=== PATIENT | female | born 1980 | race Caucasian/White ===

== ENCOUNTER 2020-05-08 17:49 | Inpatient (IN) | payer OTHER, SELFPAY ==
[~2020-05-08] VITALS: Ht 160 cm; Wt 103.9 kg
--- NOTE | 2020-05-08 18:08 | NUR ---
PT BIB SELF C/O WORSENING SOB SINCE 04/27/20. PT ALSO REPORTS DIARRHEA X1 WEEK. DENIES ANY NAUSEA. PT REPORTS SHE WAS DIAGNOSED COVID POSITIVE ON 04/29/20. PT IS AAOX4, REPS SHALLOW AND EVEN, LUNG CTA, SKIN INTACT PINK WARM AND DRY. PT GOWNED AND PLACED ON MONITOR, SPO2 @98% ON ROOM AIR. AWAITING MSE BY .
[2020-05-08 19:16] LABS: microscopic required? NO
--- NOTE | 2020-05-08 19:17 | NUR ---
REPORT GIVEN TO GERMÁN CARPIO RN, WHO WILL ASSUME FURTHER CARE OF THIS PATIENT.
[2020-05-08 19:27] LABS: urine erythrocyte NEGATIVE (NEGATIVE)
[2020-05-08 19:28] LABS: BASOPHIL % 0.4 % (0-2)
[2020-05-08 19:29] LABS: PLATELET COUNT 439 x10^3mcL (130-400); RED CELL DISTRIBUTION WIDTH 18.1 % (11.5-14.5)
[2020-05-08 19:37] LABS: CARBON DIOXIDE 22.2 mmol/L (21-32); CHLORIDE SERUM 98 mmol/L (98-107); CREATININE SERUM 0.7 mg/dL (0.6-1.0); GFR1 > 60 mL/min; GLUCOSE SERUM 125 mg/dL (74-106); POTASSIUM SERUM 3.2 mmol/L (3.5-5.1); SODIUM SERUM 134 mmol/L (136-145)
[2020-05-08 19:44] LABS: ALKALINE PHOSPHATASE 58 U/L (46-116); ALT/SGPT 26 U/L (14-59); AST/SGOT 31 U/L (15-37); BILIRUBIN TOTAL 0.4 mg/dL (0.20-1.00); C REACTIVE PROTEIN 7.6 mg/dL (<=0.9); LACTIC DEHYDROGENASE (LDH) 221 U/L (100-190); TOTAL PROTEIN, SERUM 7.7 g/dL (6.4-8.2)
[2020-05-08] MEDS ORDERED: JANUVIA50 M1 (20:25)
[2020-05-08] MEDS ORDERED: JARDIANCE10 MG PO (20:25)
[2020-05-08] MEDS ORDERED: METFORMIN HYDR500 M1 PO (20:26)
[2020-05-08] MEDS ORDERED: TOPROL XL50 MG PO (20:26)
[2020-05-08] MEDS ORDERED: LIPITOR10 MG GT (20:26)
[2020-05-08] MEDS ORDERED: TAPAZOLE5 MG PO (20:26)
--- NOTE | 2020-05-08 20:27 | NUR ---
ASSISTED PT ONTO BEDSIDE COMMODE; SOFT NON BLOODY STOOL NOTED; NO DISTRESS. RESP RATE 22-24, AAO4.
--- NOTE | 2020-05-08 21:27 | NUR ---
PT REMAINS CONNECTED TO FULL CM; CALL LIGHT IN REACH, NO DISTRESS.
--- NOTE | 2020-05-08 22:56 | NUR ---
PT AAO4, RESP E/U, NO DISTRESS. DIMMED LIGHT FOR COMFORT; CALL LIGHT IN REACH
--- NOTE | 2020-05-09 00:32 | NUR ---
PT REMAINS CONNECTED TO FULL CM. NO DISTRESS.
--- NOTE | 2020-05-09 00:58 | NUR ---
RESPONDED TO CALL LIGHT. PER PT FELT COLD AND NUMBING SENSATION TO RT UPPER THIGH. ENCOURAGED PT TO GET UP AND STRETCH LEG AND MOVE AROUND. PT STS SENSATION RETURNING TO LEG. CALL LIGHT IN REACH.
--- NOTE | 2020-05-09 01:33 | NUR ---
recieved report from jeffrey Encinas to assume care of pt.
--- NOTE | 2020-05-09 02:07 | NUR ---
PT LAYING IN POSITION OF COMFORT ON LEFT LATERAL SIDE. PT INSTRUCTED TO LAY IN PRONE POSITION IF TOLERABLE. PT A&OX4,NO ACUTE DISTRESS NOTED, RESP EVEN AND UNLABORED, O2 SATURATION FLUXUATING BETWEEN 93-96%. PLACED PT 1L O2 VIA NC. PT GAVE UNDERSTANDING TO INSTURCTIONS TO LAY IN PRONE POSITION.
--- NOTE | 2020-05-09 03:45 | NUR ---
PT WAKES EASILY TO NAME AND VERBAL STIMULI. PT LEADS MOVED TO OBTAIN BETTER READING ON MORNING NEWS ANCHOR. PT REMAINS ON MONITOR AND ON
[2020-05-09 06:32] VITALS: BP 110/45
--- NOTE | 2020-05-09 07:10 | NUR ---
REPORT GIVEN TO STEVEN DIAMOND.
--- NOTE | 2020-05-09 07:17 | NUR ---
RECEIVE REPORT STEVEN BELTRAN
--- NOTE | 2020-05-09 07:45 | NUR ---
CALLED PHARMACY TO DELIVER IN PATIENT MEDICATION PER PHARMACY WILL DELIVER AND PLACED IN BLUE BIN,
--- NOTE | 2020-05-09 08:50 | NUR ---
LAB AT BEDSIDE WITH MORNING DRAW
--- NOTE | 2020-05-09 09:10 | NUR ---
MEDICATED PT PER ADMITTING ORDERS, PT TOLERATED WELL, SEE EMAR
[2020-05-09 09:18] LABS: BASOPHIL % 0.4 % (0-2); PLATELET COUNT 393 x10^3mcL (130-400); RED CELL DISTRIBUTION WIDTH 18.6 % (11.5-14.5)
--- NOTE | 2020-05-09 09:34 | NUR ---
PT SITTING UP IN BED, AAOX4, FOOD TRAY SET ON SIDE TABLE, PT EATING, NO ACUTE RESPIRATORY DISTRESS NOTED, STATES 5/10 DISCOMFORT ON EPIGASTRIC AREA, PT STATES SITTING UP IN HIGH FOWLERS POSITION HELPED WITH THE DISCOMFORT, RR 22, PT ON 1 L/MIN OXYGEN VIA NC, CURRENT 02 SAT 97%, SAFETY PRECAUTIONS IN PLACE, CALL LIGHT WITHIN REACH. UPATED PT REGARDING POC
[2020-05-09 09:46] LABS: CALCIUM 7.8 mg/dL (8.5-10.1); CARBON DIOXIDE 25.6 mmol/L (21-32); CHLORIDE SERUM 104 mmol/L (98-107); CREATININE SERUM 0.5 mg/dL (0.6-1.0); GFR1 > 60 mL/min; GLUCOSE SERUM 127 mg/dL (74-106); POTASSIUM SERUM 3.5 mmol/L (3.5-5.1); SODIUM SERUM 138 mmol/L (136-145)
--- NOTE | 2020-05-09 11:06 | NUR ---
REPORT GIVEN TO MICHAEL HARRIS TELE NURSE
--- NOTE | 2020-05-09 11:45 | NUR ---
RECEIVED PT FROM ER. PT ADMITTED FOR WORSENING OF COVID SYMPTOMS AND PNA. PT IS A/OX4. YI SPEAKING. NO SOB OR FACIAL DISTRESS NOTED. NO C/O PAIN AT THIS TIME. PT IS ON 2L NC. ABD SOFT AND ROUND. LBM 05/09/20. DENIES N/V/D. SKIN INTACT. IV 20G ON RAC. INTACT. PATENT. NO SIGNS OF INFILTRATION. ADMISSION CARE RENDERED. PT IS ORIENTED TO ROOM. BED AT THE LOWEST POSITION. CALL LIGHT WITHIN REACH. WILL CONTINUE TO MONITOR.
--- NOTE | 2020-05-09 12:05 | NUR ---
IN AND EVAL PT. MADE HER AWARE THAT WAS TESTED FOR COVID BACK IN APRIL 29 AND PT STATES POSITIVE FOR COVID. NEW ORDER RECEIVED FROM REMDESEVIR 200MG X1 THEN REMDESEVIR 100MG DAILY. CONVALESCENT PLASMA 1 UNIT ALSO ORDERED BY . MICHAEL HARRIS ASSIGNED TO THIS PT MADE AWARE OF ABOVE.
[2020-05-09 13:04] VITALS: BP 113/57
--- NOTE | 2020-05-09 16:00 | NUR ---
PT COMPLAINED ABOUT HAVING DIARRHEA. INFORMED PT THAT IT IS ONE OF THE SIDE EFFECT OF GETTING ANTIBIOTIC. PT VERBALIZED UNDERSTANDING AND STILL WOULD LIKE TO BE MEDICATED FOR IT. SPOKE TO DR CHOE. DR CHOE GAVE NEW ORDER FOR LOMATIL Q4H. NOTED AND CARRIED OUT.
[2020-05-09 17:27] VITALS: BP 103/52
--- NOTE | 2020-05-09 19:05 | NUR ---
PT RESTING COMFORTABLY AT THIS TIME. CURRENTLY GETTING CONV. PLASMA. WILL ENDORSE TO PM NURSE FOR CONTINUTIY OF CARE.
--- NOTE | 2020-05-09 19:30 | NUR ---
RECEIVED REPORT FROM MICHAEL HARRIS. PT AAOX4 AND DENIES THORNE/DIZZINESS. PT ON TELE #12, NSR WITH HR 72. PT DENIES CP/PRESSURE. PT PULSES PALPABLE AND CAP REFILL <3 SEC. PT ON HEPARIN SQ. PT LUNG SOUNDS CTA ON 2L NC. PT DENIES SOB OR RESP DISTRESS. PT ABD SOFT/ROUND WITH ACTIVE BS X4. PT DENIES N/V/C. PT C/O DIARRHEA. PT VOIDS FREELY VIA BRP. PT HAS GENERALIZED WEAKNESS, BUT IS AMBULATORY. PT SKIN INTACT. PT DENIES S/S OF PAIN OR DISCOMFORT AT THIS TIME. PT IV TO RAC PATENT AND INTACT. CONVALESCENT PLASMA INFUSING AT THIS TIME. CALL LIGHT WITHIN REACH. BED IN LOWEST POSITION. SIDE RAILS X2 UP. WILL CONTINUE TO MONITOR.
[2020-05-09 20:00] VITALS: BP 123/42
--- NOTE | 2020-05-09 20:00 | NUR ---
CONVALESCENT PLASMA INFUSION COMPLETE AT THIS TIME. VSS. TEMP 97.6, HR 63, BP 123/42 (69), RR 18, SA02 98%. PROVIDED PT WITH WATER AT THIS TIME. ALL NEEDS MET. CALL LIGHT WITHIN REACH. BED IN LOWEST POSITION. SIDE RAILS X2 UP. WILL CONTINUE TO MONITOR.
--- NOTE | 2020-05-10 02:20 | NUR ---
PT RESTING COMFORTABLY IN BED, EASILY AROUSABLE. PT BREATHING E/U ON 2L NC. NO ACUTE DISTRESS NOTED. ALL NEEDS MET. WILL CONTINUE TO MONITOR.
[2020-05-10 06:38] VITALS: BP 157/64
--- NOTE | 2020-05-10 07:07 | NUR ---
PT RESTED COMFORTABLY WITH EYES CLOSED IN INTERVALS, EASILY AROUSABLE. NO ACUTE DISTRESS NOTED. PT DENIES SOB OR RESP DISTRESS. ALL NEEDS MET. ALL QUESTIONS AND CONCERNS ANSWERED. COMFORT AND SAFETY MEASURES MAINTAINED. CALL LIGHT WITHIN REACH. BED IN LOWEST POSITION. SIDE RAILS X2 UP. DROPLET+CONTACT PRECAUTIONS MAINTAINED. ENDORSED CARE TO MICHAEL HARRIS.
--- NOTE | 2020-05-10 07:08 | NUR ---
SWABBED PT FOR MRSA AND COVID-19 TESTS AT THIS TIME. PT TOLERATED WELL.
--- NOTE | 2020-05-10 07:30 | NUR ---
RECEIVED PT FROM PM NURSE. PT AWAKE AND RESTING COMFORTABLY IN BED. NO FACIAL DISTRESS OR SOB NOTED. PT IS A/O X4. LUNG SOUNDS CTA. BREATHING E/U ON 2L NC. TELE #14. NSR. DENIES CP/PRESSURE. PULSES EVEN AND PALPABLE. NO EDEMA NOTED. ACTIVE BS X4. ABD SOFT AND NONDISTENDED. LBM 05/09/20. STILL REPORTING DIARRHEA. WILL MEDICATE PER EMAR. BRP. VOIDS FREELY. GENERALIZED WEAKNESS NOTED BUT IS AMBULATORY. SKIN INTACT. NO C/O PAIN AT THIS TIME. IV 20G ON RAC. INTACT, PATENT. TKO. BED AT THE LOWEST POSITION. CALL LIGHT WITHIN REACH. WILL CONTINUE TO MONITOR.
[2020-05-10 08:06] LABS: CALCIUM 8.7 mg/dL (8.5-10.1); CARBON DIOXIDE 29.6 mmol/L (21-32); CHLORIDE SERUM 104 mmol/L (98-107); CREATININE SERUM 0.5 mg/dL (0.6-1.0); GFR1 > 60 mL/min; GLUCOSE SERUM 123 mg/dL (74-106); SODIUM SERUM 141 mmol/L (136-145)
[2020-05-10 09:00] LABS: BASOPHIL % 0.5 % (0-2)
[2020-05-10 10:18] LABS: PLATELET COUNT 442 x10^3mcL (130-400); RED CELL DISTRIBUTION WIDTH 17.9 % (11.5-14.5)
[2020-05-10 13:00] VITALS: BP 129/81
--- NOTE | 2020-05-10 17:30 | NUR ---
PT NOTED TO HAVE A DRY, NONPRODUCTIVE COUGH. SPOKE TO DR CHOE OVER THE PHONE. DR CHOE ORDERED ALLYSON DM Q6H. NOTED AND CARRIED OUT.
[2020-05-10 17:34] VITALS: BP 101/54
--- NOTE | 2020-05-10 19:30 | NUR ---
RECEIVED REPORT FROM MICHAEL HARRIS. PT IS AAOX4 AND DENIES THORNE/DIZZINESS. PT ON TELE #14, NSR WITH HR 62. PT DENIES CP/PRESSURE. PT PULSES PALPABLE AND CAP REFILL <3 SEC. PT LUNG SOUNDS DIMINISHED TO BLL. PT DENIES SOB OR RESP DISTRESS. PT ABD SOFT/ROUND WITH ACTIVE BS X4. PT DENIES N/V/C. PT C/O DIARRHEA. PT VOIDS FREELY WITH BRP. PT HAS GENERALIZED WEAKNESS AND IS AMBULATORY. PT SKIN INTACT. PT RAC IV PATENT/INTACT. ALL NEEDS MET. CALL LIGHT WITHIN REACH. BED IN LOWEST POSITION. SIDE RAILS X2 UP. WILL CONTINUE TO MONITOR.
[2020-05-10 20:41] VITALS: BP 119/65
--- NOTE | 2020-05-11 02:30 | NUR ---
DATABASE TESTER REPORTED THAT PT RHYTHM WENT FROM NSR TO JUNCTIONAL WITH FREQUENT PVCS. DR. PARIKH AWARE. NO NEW ORDERS GIVEN AT THIS TIME.
--- NOTE | 2020-05-11 02:56 | NUR ---
PT RESTING COMFORTABLY WITH EYES CLOSED, EASILY AROUSABLE. NO ACUTE DISTRESS NOTED. PT BREATHING E/U. PT DENIES SOB OR RESP DISTRESS. ALL NEEDS MET. WILL CONTINUE TO MONITOR.
--- NOTE | 2020-05-11 06:07 | NUR ---
PT WAS SWABBED FOR COVID TEST AGAIN D/T PREVIOUS TEST NOT BEING RECEIVED FROM THE DAY BEFORE. PT TOLERATED WELL.
[2020-05-11 06:13] VITALS: BP 120/75
--- NOTE | 2020-05-11 07:30 | NUR ---
RECEIVED REPORT FROM CHARLEEN HARRIS PM, PT IN BED, SLEEPING, IN NO ACUTE APPARENT DISTRESS, PERRLA, NO FACIAL DROOP, NO SOB/COUGH/WHEEZING, 2L/MIN, NC, 92-94%, LUNGS CTAB, TELE # 14, SR, BS ACTIVE X 4, NONTENDER TO TOUCH, SEE SHIFT ASSESSMENT, IV PATENT, DRESSING CDI, CONTINENT, BRP, AMBULATORY, NO SKIN ISSSUE NOTED, ALL NEEDS ADDRESSED, SAFETY PROTOCOL FOLLOWED, CONTINUE TO MONITOR
--- NOTE | 2020-05-11 07:35 | NUR ---
PT RESTED COMFORTABLY WITH EYES CLOSED, EASILY AROUSABLE. NO ACUTE DISTRESS NOTED. PT COMPLIED WITH NURSING CARE DURING THE SHIFT. COMFORT AND SAFETY MEASURES MAINTAINED. ALL NEEDS MET. ENDORSED CARE TO THI RN. ALL QUESTIONS AND CONCERNS ADDRESSED.
--- NOTE | 2020-05-11 07:39 | NUR ---
PT SEEN BY DR CHOE AT BEDSIDE, NEW ORDER NOTED, PT AWARE, CHARGE NURSE AWARE, CONTINUE TO MONITOR
[2020-05-11 09:08] VITALS: BP 128/69
--- NOTE | 2020-05-11 09:30 | NUR ---
AM MED GIVEN PER MD ORDER, TOLERATED WELL, NO ASE NOTED AT THIS TIME, EDUCATED PT R/T MED, ASE AND MONITOR, VERBALLY UNDERSTANDING, TOLERATED BREAKFAST WELL, IV PATENT, DRESSING CDI, ALL NEEDS ADDRESSED, SAFETY PROTOCOL FOLLOWED, CONTINUE TO MONITOR
--- NOTE | 2020-05-11 09:55 | NUR ---
PT REPOTED PAIN, /10, ABD, LOCAL, DULL AND COUGH, PRN MED GIVEN PER ORDER VAI EMAR, TOLERATED WELL, ADUCATION R/T MED GIVEN, VERBALLY UNDERSTANDING, ALL NEEDS ADDRESSED, SAFETY PROTOCOL REENFORCED, CONTINUE TO MONITOR
[2020-05-11 10:20] LABS: ALKALINE PHOSPHATASE 51 U/L (46-116); ALT/SGPT 35 U/L (14-59); AST/SGOT 32 U/L (15-37); BILIRUBIN TOTAL 0.3 mg/dL (0.20-1.00); CALCIUM 8.3 mg/dL (8.5-10.1); CHLORIDE SERUM 105 mmol/L (98-107); CREATININE SERUM 0.5 mg/dL (0.6-1.0); GFR1 > 60 mL/min; GLUCOSE SERUM 120 mg/dL (74-106); POTASSIUM SERUM 3.8 mmol/L (3.5-5.1); SODIUM SERUM 141 mmol/L (136-145)
[2020-05-11 10:28] LABS: ALBUMIN 2.9 g/dL (3.4-5.0)
--- NOTE | 2020-05-11 11:40 | NUR ---
PT IN BED, IN NO ACUTE RESP DISTRESS, BS CHECKED, NO INSULIN COVERAGE NEEDED AT THIS TIME PER SLEDING SCALE, PT DENIED PAIN/DISCOMFORT, DENIED THORNE/N/V/D, DENIED CP/PALPITATION, IV PATENT, DRESSING CDI, AMBULATORY, CONTINENT, IV PATENT, DRESSING CDI, SKIN C.D.W, ALL NEEDS ADDRESSED, SAFETY PROTOCOL FOLLOWED, CONTINUE TO MONITOR
[2020-05-11 12:31] VITALS: BP 109/57
--- NOTE | 2020-05-11 14:45 | NUR ---
PT IN BED, IN NO ACUTE RESP DISTRESS, RESP E/U, 2L/MIN, 96%, NO SOB/COUGH/WHEEZING, AFIBRIL, IV PATENT, DRESSING CDI, KVO, PT REPORTED DIARRHEA X 3 TIME, PRN MED GIVEN PER MD ORDER, TOLERATED WELL, VERBALLY UNDERSTANDING EDUCATION R/T MED, TOLERATED LUNCH WELL, ALL NEEDS ADDRESSED, DENIED PAIN/DISCOMFORT, DENIED THORNE/N/V, SAFETY PROTOCOL FOLLOWED, CONTINUE TO MONITOR
--- NOTE | 2020-05-11 16:22 | NUR ---
PT IN BED, SLEEPING, IN NO ACUTE RESP DISTRESS, RESP E/U, 2L/MIN, NC, 96%, NO SOB/COUGH/WHEEZING, NO FURTHER DIARRHEAR REPORTED AT THIS TIME, BS CHECKED, NO INSULIN COVERAGE NEEDED AT THIS TIME PER SLIDING SCALE, ALL NEEDS ADDRESSED, SAFETY PROTOCOL FOLLOWED, CONTINUE TO MONITOR
[2020-05-11 16:57] VITALS: Ht 160 cm; Wt 103.9 kg
[2020-05-11 17:29] VITALS: BP 99/53
--- NOTE | 2020-05-11 18:11 | NUR ---
PT IN BED, IN NO ACUTE DISTRESS, RESP E/U, NO SOB/COUGH/WHEEZING NOTED, 2L/MIN, NC, O2 SAT 96%, TELE, SR, HR-60 AT THIS TIME, DENIED PAIN/DISCOMFORT, DENIED CP/PALPITATION, DENIED THORNE/N/V/D, IV PATENT, KVO, DRESSING CDI, SKIN C/D/W, AMBULATORY, CONTINENT, BRP, TOLERATED DINNER WELL, ALL NEEDS ADDRESSED, SAFETY PROTOCOL FOLLOWED, WILL ENDORSE TO ONCOMING RN
[2020-05-11 21:11] VITALS: BP 123/63
[2020-05-12 06:42] VITALS: BP 118/58
[2020-05-12 07:22] LABS: BASOPHIL % 0.4 % (0-2)
--- NOTE | 2020-05-12 07:25 | NUR ---
RECEIVED PT. IN BED A/A/O X3. NO SOB, NO N/V NOTED. PT. DENIES ANY PAIN AT THIS TIME. PT. IS ON O2 AT 2L VIA NC. IV SITE NOTED TO R AC. PT. IS ON DROPLET ISOLATION FOR (+) COVID-19. BED IN LOW POS., CALL LIGHT WITHIN REACH. SIDE RAILS UP X3.
[2020-05-12 08:19] LABS: ALKALINE PHOSPHATASE 48 U/L (46-116); ALT/SGPT 38 U/L (14-59); AST/SGOT 36 U/L (15-37); BILIRUBIN TOTAL 0.3 mg/dL (0.20-1.00); CALCIUM 8.1 mg/dL (8.5-10.1); CARBON DIOXIDE 28.1 mmol/L (21-32); CHLORIDE SERUM 106 mmol/L (98-107); CREATININE SERUM 0.6 mg/dL (0.6-1.0); GFR1 > 60 mL/min; GLUCOSE SERUM 104 mg/dL (74-106); POTASSIUM SERUM 3.5 mmol/L (3.5-5.1); SODIUM SERUM 143 mmol/L (136-145); TOTAL PROTEIN, SERUM 6.8 g/dL (6.4-8.2)
[2020-05-12 08:20] LABS: ALBUMIN 2.8 g/dL (3.4-5.0)
[2020-05-12 08:42] LABS: PLATELET COUNT 459 x10^3mcL (130-400); RED CELL DISTRIBUTION WIDTH 17.6 % (11.5-14.5)
[2020-05-12 09:10] VITALS: BP 123/59
[2020-05-12 13:00] VITALS: BP 118/61
[2020-05-12 16:50] VITALS: BP 130/63
--- NOTE | 2020-05-12 17:51 | NUR ---
REMAINS IN STABLE CONDITION AT THIS TIME. WILL CONTINUE TO MONITOR.
--- NOTE | 2020-05-12 20:00 | NUR ---
REC'D PT FROM DAY NURSE. PT RESTING IN BED. AAOX4, SPEECH CLEAR, FOLLOWS COMMANDS. TELE 14. DENIES CP, DIZZINESS, OR PALPITATIONS. DENIES RESP DISTRESS OR SOB. BREATHING EVEN/UNLABORED ON 2L NC, SPO2 100%. REDUCED TO 1L, SPO2 98%. REPORTS DRY COUGH AT TIMES. ABD SOFT/ROUND. C/O RUQ MILD ACHING PAIN, TOLERABLE. C/O NAUSEA, WILL GIVE PHENERGAN. RUQ TENDERNESS UPON PALPATION. C/O LOOSE STOOLS, WILL GIVE LOMOTIL. VOIDING FREELY. MILD GEN WEAKNESS. AMBULATORY WITH FULL ROM. SKIN INTACT. IV TO RAC INFILTRATED. IV TO LFA STARTED. CALL LIGHT WITHIN REACH, BED AT LOWEST POSITION. WILL CONTINUE TO MONITOR.
[2020-05-12 21:29] VITALS: BP 140/78
--- NOTE | 2020-05-12 23:47 | NUR ---
PT HR DOWN TO 41 WHEN SLEEPING. AWAKENS WITH VERBAL STIMULATION. ASYMPTOMATIC AND DENIES ANY DIZZINESS OR LIGHTHEADEDNESS. HR GOES UP TO 60'S WHEN WOKEN BUT THEN DOWN TO 40-50'S WHEN BACK ALSEEP. BREATHING EVEN/UNLABORED ON 1L NC. WILL CONTINUE TO MONITOR.
--- NOTE | 2020-05-13 02:22 | NUR ---
PT RESTING IN BED WITH EYES CLOSED. NO SIGNS OF DISTRESS OR PAIN NOTED. BREATHING EVEN/UNLABORED ON 1L NC. HR 54. CALL LIGHT WITHIN REACH, BED AT LOWEST POSITION. WILL CONTINUE TO MONITOR.
[2020-05-13 06:03] VITALS: BP 131/60
--- NOTE | 2020-05-13 06:23 | NUR ---
PT RESTING IN BED WITH EYES CLOSED. AWAKENS WITH VERBAL STIMULI. C/O NAUSEA, NO EMESIS. PHENERGAN GIVEN PER ORDER. DENIES SOB AT THIS TIME. BREATHING EVEN/UNLABORED ON 1L NC, SPO2 99%. NO SIGNIFICANT CHANGES DURING SHIFT. NO BM TONIGHT. CALL LIGHT WITHIN REACH, BED AT LOWEST POSITION. WILL ENDORSE TO DAY NURSE.
[2020-05-13 06:43] LABS: BASOPHIL % 0.4 % (0-2)
[2020-05-13 06:53] LABS: ALBUMIN 2.8 g/dL (3.4-5.0); ALKALINE PHOSPHATASE 49 U/L (46-116); ALT/SGPT 40 U/L (14-59); AST/SGOT 36 U/L (15-37); BILIRUBIN TOTAL 0.4 mg/dL (0.20-1.00); CALCIUM 8.1 mg/dL (8.5-10.1); CARBON DIOXIDE 29.9 mmol/L (21-32); CHLORIDE SERUM 105 mmol/L (98-107); CREATININE SERUM 0.6 mg/dL (0.6-1.0); GFR1 > 60 mL/min; GLUCOSE SERUM 89 mg/dL (74-106); POTASSIUM SERUM 3.7 mmol/L (3.5-5.1); SODIUM SERUM 141 mmol/L (136-145); TOTAL PROTEIN, SERUM 6.6 g/dL (6.4-8.2)
[2020-05-13 06:56] LABS: PLATELET COUNT 475 x10^3mcL (130-400); RED CELL DISTRIBUTION WIDTH 17.4 % (11.5-14.5)
--- NOTE | 2020-05-13 07:30 | NUR ---
PT ENDORSE TO ME THIS MORNING, LAYING IN BED RESTING A/O X4 /BREATHING EVEN AND UNLABORED ON 1L NC SATING AT 95% NO ACUTE RESP DISTRESS OR SOB NOTED. TELE 14 SB NOTED 51 HR DENIES ANY DIZZINESS OR CP NOTED. VOIDS FREELY. AMB. KNOWS TO CALL FOR ASSIST. IV TO THE LFA NO REDNESS OR SWELLING NOTED. CALL LIGHT IN REACH. BED IN LOW POSITION. WILL CONTINUE TO MONITOR.
[2020-05-13 09:14] VITALS: BP 129/69
--- NOTE | 2020-05-13 09:50 | NUR ---
PT C/O NV MEDICATED PER EMAR AND REFUSE TO TAKE BP DUE TO LOW HR 49-[address] CHOE AWARE. WILL CONTINUE TO MONITOR.
--- NOTE | 2020-05-13 13:12 | NUR ---
PT REFUSE TO EAT HER LUNCH/ PROVIDED AYLEEN, CURRENT BS 91/ WILL CONTINUET TO MONITIOR.
[2020-05-13 17:04] VITALS: BP 117/58
--- NOTE | 2020-05-13 19:04 | NUR ---
NO ACUTE CHANGES AT THIS TIME, NO ACUTE RESP DISTRESS OR SOB NOTED. REMAINS ON 1L NC SATING AT 98 % TOLERATED 100 % OF DINNER NO NV NOTED AT THIS TIME. WILL ENDORSE TO INCOMING RN.
[2020-05-13 20:09] VITALS: BP 145/75
--- NOTE | 2020-05-14 00:09 | NUR ---
POST TYLENOL/ COUGH MEDS PT'S MUCH BETTER ,
--- NOTE | 2020-05-14 00:09 | NUR ---
REMDESIVIR INFUSION COMPLETED NO REACTION NOTED, TELE SB HR 59.
--- NOTE | 2020-05-14 02:05 | NUR ---
PT IN BED WITH EYES CLOSED , TELE SB HR 48 SAT 98%
[2020-05-14 05:43] VITALS: BP 104/48
--- NOTE | 2020-05-14 06:35 | NUR ---
NO CHANGES OF CONDITION NOTED, ALL DUE MEDS GIVEN NO REACTION NOTED , SAT 97% TELE SB HR 58
[2020-05-14 06:52] LABS: ALKALINE PHOSPHATASE 50 U/L (46-116); ALT/SGPT 42 U/L (14-59); AST/SGOT 35 U/L (15-37); BILIRUBIN TOTAL 0.3 mg/dL (0.20-1.00); CALCIUM 8.1 mg/dL (8.5-10.1); CARBON DIOXIDE 30.8 mmol/L (21-32); CHLORIDE SERUM 106 mmol/L (98-107); CREATININE SERUM 0.6 mg/dL (0.6-1.0); GFR1 > 60 mL/min; GLUCOSE SERUM 105 mg/dL (74-106); POTASSIUM SERUM 3.8 mmol/L (3.5-5.1); SODIUM SERUM 143 mmol/L (136-145); TOTAL PROTEIN, SERUM 6.2 g/dL (6.4-8.2)
[2020-05-14 06:56] LABS: ALBUMIN 2.9 g/dL (3.4-5.0)
--- NOTE | 2020-05-14 07:30 | NUR ---
RECEIVED PATIENT IN BED IN ISOLATION FOR POSITIVE COVID 19. ALERT ORIENTED VERY PLEASANT. TELE 14 SB HR 56. RESP EVEN AND UNLABORED, LUNGS DIMINISHED ON O2 1L N/C SAT 99%. AMBULATES AD VAIBHAV. HL LEFT F/A PATENT. NO ACUTD DISTRESS NOTED.
[2020-05-14 09:07] VITALS: BP 137/86
--- NOTE | 2020-05-14 13:02 | NUR ---
PATIENT'S PLAN OF CARE WAS DISCUSSED AND REVIEWED WITH SEAMSTRESS FITTER:ENRIQUE TSE. I HAVE REVIEWED THE DATA COLLECTION BY SEAMSTRESS FITTER (NAME):ENRIQUE TSE. ENTERED ON (DATE/TIME):05/14/20. I CONCUR WITH THE DATA AND ANY EXCEPTIONS OR COMMENTS ARE LISTED BELOW:
[2020-05-14 14:28] VITALS: BP 120/71
--- NOTE | 2020-05-14 15:55 | NUR ---
PATIENT REMAINS IN BED APPEARS TO BE RESTING WELL. NO C/O PAIN OR DISCOMFORT. NO RESP DISTRESS NOTED. WILL CONTINUE TO MONITOR.
--- NOTE | 2020-05-14 17:11 | NUR ---
PATIENT SITTING UP IN BED. NO RESP DISTRESS NOTED. PER PATIENT SHE HAD ONE EPISODE OF DIARRHEA THIS AFTERNOON. ALSO C/O FEELING NAUSEATED WHEN HER MEAL COMES BUT HAS BEEN ABLE TO EAT. PATIENT TO BE MEDICATED WITH PHENERGAN IV BY ANOOP HARRIS ORDERED. WILL CONTINUE TO MONITOR.
[2020-05-14 18:42] VITALS: BP 127/57
[2020-05-14 21:00] VITALS: BP 131/68
--- NOTE | 2020-05-14 21:05 | NUR ---
PT'S IN BED NO RESP DISTRESS NOTED, DENY PAIN AT THE MOMENT , TELE SB . HL PATENT .
[2020-05-15 06:25] VITALS: BP 105/47
--- NOTE | 2020-05-15 06:28 | NUR ---
NO CHANGES OF CONDITION NOTED, ALL DUE MEDS GIVEN NO REACTION NOTED, TELE NSR , SAT 98% ON 1L . WILL CON'T TO MONITOR AND ASSIST PT WITH CARE .
[2020-05-15 07:02] LABS: ALKALINE PHOSPHATASE 52 U/L (46-116); ALT/SGPT 50 U/L (14-59); AST/SGOT 43 U/L (15-37); BILIRUBIN TOTAL 0.4 mg/dL (0.20-1.00); CALCIUM 8.4 mg/dL (8.5-10.1); CARBON DIOXIDE 30.7 mmol/L (21-32); CHLORIDE SERUM 104 mmol/L (98-107); CREATININE SERUM 0.6 mg/dL (0.6-1.0); GFR1 > 60 mL/min; GLUCOSE SERUM 88 mg/dL (74-106); POTASSIUM SERUM 3.6 mmol/L (3.5-5.1); SODIUM SERUM 142 mmol/L (136-145); TOTAL PROTEIN, SERUM 6.9 g/dL (6.4-8.2)
--- NOTE | 2020-05-15 07:30 | NUR ---
PATIENT IS A&OX4, FOLLOWS COMMANDS AND COOPERATES WLEL. TELE #14, DENIES CHEST PAIN, SINUS REKHA AT THIS TIME IN THE 50'S. PERIPHERAL PULSES PALPABLE W/ NO SIGNS OF EDEMA. ON LOVENOX. LUNG SOUNDS DIMINISHED BILATERALLY, ON 1L NC, O2 SAT 98%, DENIES SOB. NORMOACTIVE BSX4, ABD ROUND AND SOFT, DENIES ABD PAIN. VOIDS USING RESTROOM. AMBULATES WITH MILD GENERALIZED WEAKNESS. DENIES ANY PAIN OR DISCOMFORT AT THIS TIME. IV SITE IS CDI. WILL CONTINUE TO MONITOR PATIENT.
[2020-05-15 08:39] VITALS: BP 127/76
--- NOTE | 2020-05-15 12:34 | NUR ---
DR. CHOE VISITED AND ASSESSED PATIENT. PLAN IS FOR POSSIBLE DC TODAY. WILL CONTINUE TO MONITOR AND WILL CHECK TO SEE IF DC ORDER IS IN PLACE.
[2020-05-15 13:18] VITALS: BP 119/68
[2020-05-15 13:26] VITALS: BP 136/69
--- NOTE | 2020-05-15 13:47 | NUR ---
Initial Nutrition Assessment: 228T/B SHILPI KAUR 40F MR Dx: Worsening SOB, diarrhea, nausea, vomiting, bilateral PNA, COVID 19 PMHx: Hyperthyroidism, DM PSHx: none noted Labs: (05/15) AST 43H Meds: Glucophage, Lipitor, Lovenox, Tapazole, topROL PRN meds: D50%, Humulin, morphine, [place], Phenergan, Robitussin-DM syrup Tylenol, Ventolin Diet: CCHO PO intake since admission: 50-100% x 7 meals with average PO intake of 79% Ht: 160.02cm/63in Wt: 103.873kg/228.5lbs BMI: 40.6 Bed scale: unknown IBW: 52.27kg/115lbs %IBW: 198.7% ABW: 65kg UBW: unknown Age: 40 Food Allergies: unknown Edema: none noted Last BM: 05/14 Skin: skin intact Jomra: 19 Per H and P (05/08), 40 yo female h/o hyperthyroidism DM was dx'd with cov 19 1 week ago. She was isolated at home. She started feeling sob fever, worsening of the symptoms overnight and throughout the day she was seen and evaluated at the ed. Multiple work ups were done, CXR with b infiltrates, and was hypoxic. She was admitted to [facility] in isolation. Pt was admitted with dx: Hypoxia, COVID-19, PNA, respiratory failure, DM, hyperthyroidism, hypokalemia RD Note (05/15) Pt had average PO intake of 79% since admission. Diet provided approximately 1351kcal and 81g protein meeting 69% of estimated kcal needs and 100% estimated protein needs. RDN tried to contact via pt's phone, but pt did not respond. Per pt's primary RN, pt did not exhibit any GI distress, and pt was tolerating diet with no chewing/swallowing difficulty. RN also mentioned that pt had good appetite and she finished 100% of her breakfast this morning. Problem with: N/V/D/C: none per RN Problems with: Chewing: Swallowing: none per RN Current appetite: good per RN; 100% breakfast this morning Recent wt change: unknown %wt change: unknown Height: unknown Vitamin/Supplement use: unknown Special diet at home: unknown Physical activity: unknown Nutrition education given (specify specific nutrition education and handout given): Written education on Diabetic diet was provided. Food-drug interactions? Education given? n/a Estimated Nutritional Needs Based on adjusted body weight (65kg) Energy: 5251-5778 kcal/day (30-35 kcal/kg for viral infection) Protein: 78-98 g/day (1.2-1.5 g/kg for viral infection) Fluid: 8604-6819 mL/day (1 mL/kcal) Nutrition Diagnosis: 1. Increased energy and protein needs r/t viral infection a/e/b pt has COVID-19. 2. Obese class III r/t pathophysiological cause a/e/b pt BMI >40 (BMI = 40.6 on 05/15). Intervention 1. Recommend continue CCHO diet as tolerate 2. Recommend glucerna QD for additional 220kcal and 10g protein. Monitor/Evaluate Goal: PO intake at least 75% of estimated needs Monitor: PO intake, Labs, GI function, body weight F/U in 3-5 days as moderate risk 05/18-8
--- NOTE | 2020-05-15 13:48 | NUR ---
1. Recommend continue CCHO diet as tolerate 2. Recommend glucerna QD for additional 220kcal and 10g protein.
--- NOTE | 2020-05-15 14:10 | NUR ---
DISCHARGE INSTRUCTIONS HAVE BEEN GIVEN TO PATIENT. ALL QUESTIONS AND CONCERNS HAVE BEEN ADDRESSED. PATIENT IS APPREHENSIVE ABOUT BEING SENT HOME DUE TO HER DIAGNOSIS. HOWEVER, PATIENT WAS INSTRUCTED, AND EDUCATIONAL HANDOUTS PERTAINING TO COVID 19 WERE GIVEN WELL. IV WAS DC WITH CATHETER INTACT, AND TELE WAS RETURNED TO STATION. AWAITING FOR PATIENT TO BE PICKED UP. WILL CONTINUE TO MONITOR.
== END 2020-05-15 16:20 | disposition home or self-care (01) | DRG 177 ==
LOC: ED 17:49 → DU 20:04
PROVIDERS: Emergency Medicine; ADMIT Internal Medicine; ATTEND Internal Medicine
PROC: 30233K1 Transfusion of Nonautologous Frozen Plasma into Peripheral Vein, Percutaneous Approach (ICD-10-PCS; principal; 2020-05-09)
DX: U07.1 COVID-19 (principal); J12.89 Other viral pneumonia; J96.01 Acute respiratory failure with hypoxia; E05.90 Thyrotoxicosis, unspecified without thyrotoxic crisis or storm; E11.65 Type 2 diabetes mellitus with hyperglycemia; E78.5 Hyperlipidemia, unspecified; E87.6 Hypokalemia
CPT/HCPCS: 82962; 83880; 85378; 87804; 97116-GP; G0378; J0456; J0696; J1650; J1885; J2405; J2543; J2550; J3535; J7030; J7040; J7050; Q0092; U0003-CS